=== PATIENT | male | born 1980 | race Caucasian/White ===

== ENCOUNTER 2022-12-30 02:22 | Day surgery (SDC) | payer OTHER, SELFPAY ==
[2022-12-23 09:58] VITALS: BMI 23.6
--- NOTE | 2022-12-23 10:03 | PC.NURSE ---
Report to the Outpatient Waiting Room, entrance under the green pavilion located off [facility], at time 1130 on date 12/30/22. Planned Procedure Time: 1330. Time changes happen often and if your time is changed the preop area will call you the afternoon before. - You and your visitor will be asked to self-screen and do not enter if you have any COVID symptoms. - A mask is optional within the hospital at this time. Patients may have clear liquids (water, carbonated beverages, clear teas, apple juice) until 3 hours prior to surgery with a maximum of 20 ounces. - No food from midnight until time of surgery Take the following medications with a SIP of water the morning of surgery: N/A DO NOT STOP ANY OF YOUR OTHER PRESCRIPTION MEDICATIONS PRIOR TO SURGERY ?EXCEPT THE FOLLOWING Medications to discontinue per physician: N/A Date to take last dose: N/A Please no make-up, nail welsh, hairspray, perfume, deodorant, or body powder the day of surgery. No jewelry (including any body piercings) or valuables the day of surgery, leave them at home. Please take a shower or bath the night before, or the morning of, surgery with an antibacterial soap. Wear comfortable, loose fitting clothing. - Jewelry must be removed prior to entering the operating room. Rings and piercings that are not removed may be cut off. - The hospital will not accept responsibility for valuables. - Please leave all valuables, including medications, at home the day of surgery. If you are going home after surgery, a licensed lifter driver must drive you home. - NO public transportation without another adult if you receive anesthesia. - We recommend that an adult stay with you for 24 hours following discharge. - We also recommend that you do not drive, make important decision, drink alcoholic beverages, or take any drugs that were not prescribed by your health care provider for at least 24 hours after your discharge time. Follow any additional instructions given to you from your surgeon. If you or anyone in your household have experienced Covid symptoms in the past week, please notify your surgeon or the nurse liaison at the phone number below for possible testing. Telephone instructions given to PT - CIPRIANO GONZALEZ and asked if any additional questions and then verbalized understanding. Patient advised to call surgeon office or pre surgery nurse liaison [phone] if any additional questions.
--- NOTE | 2022-12-29 13:31 | P.PNAN_ITS ---
Anes - Initial Pre Proc Eval Procedure: Operation Date: 12/30/22 13:30 Proposed Procedures p Right Knee Arthroscopy - Chris Hernandez MD Date/Time: 12/29/22 13:31 Surgeon: Chris Hernandez MD Pre Op Diagnosis: Right Knee Medial meniscus tear Patient Data Age: 42 Gender: M Height: 1.85 m Weight: 81 kg Allergies Allergy/AdvReac Type Severity Reaction Status Date / Time No Known Allergies Allergy Verified 12/30/22 11:44 Home Medications Medication Instructions Recorded Confirmed Type chlorhexidine gluconate 4 % 1 applic topical ONCE #237 mL 12/22/22 12/23/22 Rx topical liquid (Hibiclens) Patient hx anesthesia problems: none Family hx anesthesia problems: none Results Review: All pre-operative results and documents have been reviewed as part of the pre-operative evaluation. [facility] Past Medical History Medical History Right knee injury Surgical History Surgical History History of repair of anterior cruciate ligament of right knee ~2009 Social History Social History Smoking packs per day: 0.5 Smoking cigarettes per day: 10.0 Years smoked: 5 Smoking pack-years: 2.50 Smoking status: Former smoker Tobacco type: cigarettes Smoking end date: 03/08/97 Alcohol intake: current Drinks per week: 3 Substance use: never Substance use type: does not use Living arrangements: with family Occupation/Education: occupation Additional occupation/education comments: [employer] Gender identity (if verbalized by the patient): Male Spiritual care concerns: No Anes - Eval Final PreProcedure Day of Procedure 12/29/22 13:31 Patient weight: normal Heart: regular rate and rhythm Lungs: clear to auscultation Airway: Mallampati scale class II Neurological: alert and oriented Last oral intake: >/= 8 hours ASA classification: II Emergent: no Anesthetic plan: proceed Anesthesia type and monitoring: general LMA and standard monitoring Results Review: All pre-operative results and documents have been reviewed as part of the pre- operative evaluation. Informed Consent: The patient's anesthetic plan and its attendant risks and benefits were discussed with the patient/family/POA. Questions were solicited and answers provided to the satisfaction of the patient/family/POA.
[2022-12-30] VITALS (7 sets, daily range): BP systolic 105–121; BP diastolic 65–84; PULSE 50–61; RESP 16; TEMP 36.5–36.8; O2SAT 98–100
--- NOTE | 2022-12-30 07:21 | WPDHPUPDATE1 ---
History and Physical Update Update Date/Time: 12/30/22 07:21 History and Physical has been reviewed, including an updated exam of the patient. There are NO changes in the patient's condition. Risks, benefits, and alternatives have been discussed and questions answered. Patient agrees to proceed with procedure.
[2022-12-30] MEDS: ACETAMINOPHEN 500 MG TABLET 1000 MG PO (12:00)
[2022-12-30] MEDS: CELECOXIB 200 MG CAPSULE PO (12:01)
[2022-12-30] MEDS: LACTATED RINGERS 1,000 ML 30 ML IV CONT ×2 (12:10→14:46)
[2022-12-30] MEDS: ceFAZolin 2 GM/D5W 50 ML 2 GM/50 ML BAG IVPB (13:23)
--- NOTE | 2022-12-30 14:47 | P.OP_ITS ---
Procedure Note - Detailed Date of Procedure 12/30/22 Pre-op Diagnosis Right Knee Medial meniscus tear Post-op Diagnosis Same Procedure Performed RIGHT KNEE SCOPE WITH PARTIAL MEDIAL MENISCECTOMY, PARTIAL LATERAL MENISCECTOMY, AND MAJOR SYNOVECTOMY Surgeon Chris Hernandez MD Anesthesia General Description of Procedure PATIENT WAS TAKEN TO THE OPERATING ROOM. ONCE HE WAS PLACED UNDER GENERAL ANESTHESIA THE RIGHT KNEE WAS EXAMINED. THERE WAS A NEGATIVE PIVOT SHIFT TEST AND ANTERIOR DRAWER TEST WAS STABLE. NEXT THE RIGHT LEG WAS PREPPED AND DRAPED STERILE. TROCARS WERE PLACED IN THE USUAL FASHION. CAMERA WAS INTRODUCED. THERE WAS MINIMAL CHONDROMALACIA TO THE PATELLA FEMORAL JOINT. THERE WAS A LOT OF SY NOVITIS IN ALL COMPARTMENTS. THE MEDIAL COMPARTMENT SHOWED MINIMAL CHONDROMALACIA TO THE MEDIAL FEMORAL CONDYLE. A SHAVER WAS USED TO PREFORM A CHONDROPLASTY. THERE WAS A COMPLEX MEDIAL MENISCUS TEAR. FURTHER EVALUATION REVEALED A FLAP AT THE MOST POSTERIOR HORN. THE TEAR WAS RESECTED WITH A BITER AND A SHAVER DOWN TO A SMOOTH BASE. ABOUT 20% OF THE MENISCUS WAS REMOVED. SYNOVECTOMY WAS PREFORMED WELL IN THE MEDIAL COMPARTMENT. THE ACL WAS INTACT. THERE WAS A LOT OF SYNOVITIS AROUND THE ACL AND THIS WAS RESECTED. DIRECT VISUALIZATION OF THE ACL GRAFT DEMONSTRATED GOOD END POINT WITH ANTERIOR DRAWER TEST. THERE WAS NO EVIDENCE OF A TEAR AND NO EVIDENCE OF FAILED ACL GRAFT. THE LATERAL MENISCUS HAD A SMALL TEAR AT THE MAIN BODY JUST ADJACENT TO THE ANTERIOR HORN. THE TEAR WAS RESECTED. THE LATERAL COMPARTMENT HAD NO CHONDROMALACIA. A SYNOVECTOMY WAS PREFORMED. THE PATELLO FEMORAL JOINT UNDERWENT MINIMAL CHONDROPLASTY. SYNOVECTOMY WAS PREFORMED IN THE SUPERIOR MEDIAL COMPARTMENT. THE WOUNDS WERE APPROXIMATED WITH 4.0 NYLON. STERILE DRESSING WAS APPLIED. PATIENT WAS EXTUBATED. Estimated Blood Loss 5 Complications No immediate complications Condition Stable Disposition PACU
[2022-12-30] MEDS: fentaNYL CITRATE INJ (*CRX) 100 MCG/2 ML VIAL 25 MCG IV PUSH ×6 (15:00→15:28)
[2022-12-30] MEDS: oxyCODONE HCL (*CRX) 5 MG TAB IR PO (15:54)
== END 2022-12-30 16:35 | disposition home or self-care (01) ==
PROVIDERS: Visit Provider Orthopaedic Surgery
PROC: (CPT 29870; principal; 2022-12-30 13:30)
DX: S83.231A Complex tear of medial meniscus, current injury, right knee, initial encounter (principal); S83.281A Other tear of lateral meniscus, current injury, right knee, initial encounter; M65.861 Other synovitis and tenosynovitis, right lower leg; M22.41 Chondromalacia patellae, right knee; X58.XXXA Exposure to other specified factors, initial encounter; Y93.66 Activity, soccer; Z87.891 Personal history of nicotine dependence
CPT/HCPCS: 29880; A9270; J0690; J1100; J2250; J2405; J2704; J3010; J7120